=== PATIENT | female | born 1985 | race Caucasian/White ===

== ENCOUNTER → 2017-01-18 | Outpatient (CLI) | payer BC ==
[~2017-01-18] MED LIST: ASCO1CAP3 PO; DAPS5GEL2 TOP; DICL1GEL28 TOP; GLUC1TAB8 PO; MNC50 PO; MULT-506 PO; NAPR1TAB9 PO; SPIR50TA2 PO; WLLSR150 PO
== END | disposition home or self-care (01) ==
LOC: C.RDSM 10:53
PROVIDERS: ATTEND Physical Medicine & Rehabilitation Sports Medicine
DX: M24.151 Other articular cartilage disorders, right hip (principal); M76.12 Psoas tendinitis, left hip; M53.3 Sacrococcygeal disorders, not elsewhere classified

== ENCOUNTER → 2017-04-28 | Outpatient (CLI) | payer BC ==
--- NOTE | 2017-04-28 13:37 | DIAGNOSTIC IMAGING REPORT ---
LEFT FOOT MIN 3 VIEWS HISTORY: 31 years-old Female acute left-sided foot pain, most pronounced within the region of the fifth metatarsal with soft tissue swelling. COMPARISON: None available TECHNIQUE: 3 views of the left foot FINDINGS: Bone mineralization is within normal limits. No acute fracture, dislocation or significant degenerative changes. No stress fracture identified. The fifth metatarsal specifically appears to be within normal limits. There is mild soft tissue swelling lateral to the fifth metatarsophalangeal joint. Negative for opaque foreign body. IMPRESSION: 1. No acute fracture or dislocation. 2. Mild soft tissue swelling lateral to the fifth metatarsophalangeal joint. The above report was generated using voice recognition software. It may contain grammatical, syntax or spelling errors. Electronically signed by: Noble Kirk M.D. 04/28/2017 1:35 PM Dictated Date/Time: 04/28/2017 1:34 PM
== END | disposition home or self-care (01) ==
LOC: C.RDSM 13:53
PROVIDERS: ATTEND Physician Assistant
DX: M79.672 Pain in left foot (principal)

== ENCOUNTER → 2017-05-25 | Outpatient (CLI) | payer BC ==
--- NOTE | 2017-05-25 14:09 | DIAGNOSTIC IMAGING REPORT ---
L FOOT MIN 3 VIEWS CLINICAL HISTORY: LEFT FOOT PAIN pain COMPARISON: 04/28/2017 DISCUSSION: The bones and joint spaces appear intact. There is no evidence of fracture, dislocation or bony disease. There is no evidence for soft tissue swelling. IMPRESSION: Negative study. The above report was generated using voice recognition software. It may contain grammatical, syntax or spelling errors. Electronically signed by: Zan Ravi M.D. 05/25/2017 2:08 PM Dictated Date/Time: 05/25/2017 2:07 PM
== END | disposition home or self-care (01) ==
LOC: C.RDSM 14:00
PROVIDERS: ATTEND Physician Assistant
DX: M79.672 Pain in left foot (principal)